=== PATIENT | male | born 1970 | race Caucasian/White ===

== ENCOUNTER 2018-10-02 23:28 | Inpatient (IN) ==
[2018-10-02] MEDS ORDERED: NS 1,000 ML IV ONE (23:50)
--- NOTE | 2018-10-02 23:56 | PROVIDER DOCUMENTATION ---
HPI-Abdominal Pain/GI Problem - General Chief Complaint: Nausea/Vomiting Stated Complaint: V/D Time Seen by Provider: 10/02/18 23:50 Source: patient Allergies/Adverse Reactions: Patient Allergies Allergy/AdvReac Type Severity Reaction Status Date / Time narcotics Allergy Intermediate panic Uncoded 07/07/16 16:12 attacks Home Medications: Home Medication List Medication Instructions Recorded Confirmed Last Taken Type Clonazepam [Klonopin] 1 mg PO TID 07/07/16 07/07/16 Unknown History Hydroxyzine [Atarax] 50 mg PO TID PRN #20 tablet 07/07/16 Unknown Rx Lisinopril 40 mg PO DAILY 07/07/16 07/07/16 Unknown History - History of Present Illness-ABD Nature of Presenting Problems: 47 YOM PRESENTS WITH C/O ABDOMINAL PAIN, N/V X 2 DAYS. HE REPORTS HE WAS AND ALCOHOLIC AND TAKES A LOT OF TYLENOL. HE REPORTS NOW HE ONLY DRINKS "ABOUT 4 BEERS A WEEK NOW". HE HAS ALSO HAD SOME DIARRHEA IN THE LAST 2 DAYS. Abdominal Pain Onset Location: reports: generalized abdomen Pain Radiation: reports: no radiation Quality of Pain: reports: none Severity in ED: reports: moderate Onset/Duration: reports: 2 days ago Timing: reports: still present Activities at Onset: reports: none Exposure to sick contacts?: No Modifying Factors: improves with: nothing Last BM: this morning Dark Stools Present?: reports: none noticed Bruising or Bleeding Gums?: No Similar Symptoms Previously?: No Recently seen or treated by another doctor?: No Review of Systems - Adult - REVIEW OF SYSTEMS - ADULT Constitutional: reports: no symptoms reported. denies: see HPI, chills, fever, fatique, night sweats, weight gain, weight loss, other Eyes: reports: no symptoms reported. denies: see HPI, discharge, dry eyes, decr eased vision, blurred vision, double vision, eye pain, redness, other Ears, Nose, Mouth & Throat: reports: no symptoms reported. denies: see HPI, ear discharge, ear pain, hearing loss, tinnitus, epistaxis, sinus problem, nose pain, loose teeth, mouth/dental pain, mouth swelling, hoarseness, throat pain, throat swelling, other Cardiovascular: reports: no symptoms reported. denies: see HPI, chest pain, edema, heart murmur, irregular heart rate, orthopnea, palpitations, poor circulation, PND, syncope, other Respiratory: reports: no symptoms reported. denies: see HPI, chronic cough, cough, dyspnea on exertion, excessive sputum production, hemoptysis, pleurisy, shortness of breath, wheezing, other Gastrointestinal: reports: see HPI, abdominal pain, diarrhea, nausea, vomiting. denies: no symptoms reported, hematemesis, constipation, difficulty swallowing, frequent heartburn, poor appetite, rectal bleeding, other Genitourinary: reports: no symptoms reported. denies: see HPI, dysuria, discharge, frequency, flank pain, frequent UTI's, hematuria, hesitency, incont inence, urinary retention, urgency, other Musculoskeletal: reports: no symptoms reported. denies: see HPI, bone pain, back pain, frequent leg cramps, joint pain, joint swelling, muscle aches, muscle weakness, neck pain, other Integumentary: reports: no symptoms reported. denies: see HPI, hives, hair loss, itching, mole changes, nail changes, rash, skin sores/ulcer, skin thickening, other Neurological: reports: no symptoms reported. denies: see HPI, ataxia, dizziness/vertigo, headache/migraines, loss of balance, numbness, paresthesia, seizure, slurred speech, syncope, tremors, other Psychiatric: reports: no symptoms reported. denies: see HPI, anxiety, anti- depressant use, alcohol/drug dependence, depression, emotional problems, insomnia, panic attacks, suicidal thoughts, other Endocrine: reports: no symptoms reported. denies: see HPI, change in skin pigment, excessive sweating, goiter, cold intolerance, heat intolerance, increased hunger, increased thirst, polyuria, other Hematologic/Lymphatic: reports: no symptoms reported. denies: see HPI, blood clots, easy bruising, low blood count, lymphedema, prolonged bleeding, swollen lymph nodes, transfusions, other Allergic/Immunologic: reports: no symptoms reported. denies: see HPI, allergic reactions, allergic rhinitis, asthma, eczema, food allergy, frequent infections, hay fever, hives, positive PPD, urticaria, other Past History - Adult - PAST MEDICAL HISTORY-ADULT Review of Records: reports: Nursing Assessment Review, Social history reviewed & non-contributory. Major Childhood Illnesses: reports: denies history Cardiovascular: reports: denies history Respiratory: reports: denies history Gastrointestinal: reports: denies history Obstetrical/Gynecological: reports: denies history Genitourinary: reports: denies history Musculoskeletal: reports: denies history Neurological: reports: denies history Psychiatric: reports: bipolar Endocrine/Immune: reports: denies history Other Conditions: reports: denies history - PRIOR SURGERIES/PROCEDURES Surgical/Procedure History: reports: tonsillectomy, other (hernia repair) - IMMUNIZATION STATUS Childhood Immunizations: See Nurse Assessment Flu Vaccine: See Nurse Assessment - FAMILY HISTORY Family History: reviewed, not pertinent Physical Exam-General - PHYSICAL EXAM-ADULT Initial Vital Signs Reviewed: Yes - CONSTITUTIONAL General Appearance: appears well, alert, no apparent distress, thin - EYES Eyes: PERRL/EOMI - HEAD, EARS, NOSE, MOUTH & THROAT HENMT: normocephalic/atraumatic, moist mucous membranes - NECK Neck: non-tender, full range of motion, supple - RESPIRATORY Respiratory: chest non-tender, lungs clear - CARDIOVASCULAR Cardiovascular: normal peripheral pulses, regular rate, rhythm - GASTROINTESTINAL (ABDOMEN) Abdominal Exam: normal bowel sounds, distended, guarding, tenderness - LYMPHATIC Lymphatic: no adenopathy - MUSCULOSKELETAL Back Exam: normal inspection Extremity: normal range of motion, non-tender, normal gait - SKIN Integumentary: normal color, normal turgor, warm/dry - NEUROLOGIC Neurologic: grossly normal - PSYCHIATRIC Psych/Mental Status: normal mood/affect, oriented x 3 Progress - PLAN OF CARE/RESULTS Progress/Plan/Lab Results: Vital Signs - 8 hr 10/02/18 23:38 Temperature 98.3 F Pulse Rate 111 H Respiratory Rate 16 Blood Pressure 116/77 O2 Sat by Pulse Oximetry 100 Orders Category Date Time Status Saline Loc NOW Care 10/02/18 23:[address] ABD/PELVIS W/IV CONT ONLY [CT] Stat Exams 10/02/18 23:51 Ordered CBC WITH ELECTRONIC DIFF [HEME] Stat Lab 10/02/18 23:45 Uncollected COMPREHENSIVE METABOLIC PANEL [CHEM] Stat Lab 10/02/18 23:45 Uncollected PROTIME WITH INR [COAG] Stat Lab 10/02/18 23:45 Uncollected PTT [COAG] Stat Lab 10/02/18 23:45 Uncollected UA NIMS W/REFLEX CULT PL [URINALYSIS] Stat Lab 10/02/18 23:45 Uncollected Ns 1000 ml IV Bolus X1 Med 10/02/18 23:50 Ordered 0.9% Sodium Chloride Inj [Ns] 1,000 ml IV 999 mls/hr Result Diagrams: 10/03/18 00:15 10/03/18 00:15 - CONSULTS/PCP/HOSPITALIST Notification #1 *Consult/PCP/Hospitalist*: Dr. Ryan, surgeon Time Discussed: 03:35 Consult Disposition: Admit - CHANGE OF SHIFT REPORT (ED Provider) 1 Report Given and Care Transferred to:: DR LOVE Time of Transfer: 01:00 Items Pending: Labs, CT/MRI Results Departure - Departure Date of Disposition Decision: 10/03/18 Time of Disposition Decision: 03:37 DIAGNOSIS: Hyponatremia Acute appendicitis Qualifiers: Acute appendicitis type: unspecified acute appendicitis type Qualified Code(s): K35.80 - Unspecified acute appendicitis Disposition: ADMITTED INPATIENT 09 Certified Medical Emergency: Emergent Condition: Stable Referrals and Follow-Ups: Shay Escalante DO [Primary Care Provider] - - Critical Care Note This patient required my direct & personal management of CC.: No Attestation - Physician/ LILO Attestation Patient care was provided by Advanced Practice Provider:: No The physician spent face to face time with patient:: Yes Advanced Practice Provider documentation review:: Supervising physician onsite and consulted in the evaluation and care of this patient. The physician did have a face to face encounter with the patient.
[2018-10-03] MEDS ORDERED: ZOFRAN IV ONE
[2018-10-03 00:49] LABS: INR 1.05; PROTIME 14.2 Seconds (11.0-16.0)
[2018-10-03 00:50] LABS: PTT 31.5 Seconds (22.3-41.8)
[2018-10-03 01:17] LABS: BASO# 0.02 X1000 (0.0-0.2); BASO% 0.3 % (0.0-0.8); EOS# 0.01 X1000 (0.0-0.7); EOS% 0.1 % (0.0-10.0); HEMATOCRIT 40.8 % (42.0-52.0); HEMOGLOBIN 15.4 g/dL (14.0-18.0); IMM GRAN# 0.02 X1000 (0.0-0.04); IMM GRAN% 0.3 % (0.0-0.5); LYMPH# 0.82 X1000 (1.2-3.4); LYMPH% 11.1 % (20.5-51.1); MCH 41.1 PG (27-31); MCHC 37.7 g/dL (33-37); MCV 108.8 FL (81-99); MONO# 0.45 X1000 (0.11-0.59); MONO% 6.1 % (1.7-9.3); MPV 8.7 FL (7.4-10.4); NEUT# 6.09 X1000 (1.4-6.5); NEUT% 82.1 % (42.2-75.2); PLT 125 X1000 (130-400); RBC 3.75 XMIL (4.7-6.1); RDW 10.9 % (11.5-14.5); WBC 7.41 X1000 (4.8-10.8)
[2018-10-03 01:41] LABS: AGAP 17; ALKALINE PHOSPHATASE 81 U/L (32-122); BUN 6 mg/dL (8-22); CALCIUM 8.8 mg/dL (8.8-10.2); CHLORIDE 84 mmol/L (98-107); COSMO 248; CREATININE 0.8 mg/dL (0.7-1.2); ESTIMATED GFR > 60; GLUCOSE 120 mg/dL (70-104); GOT 20 U/L (10-34); GPT 11 U/L (10-44); POTASSIUM 3.4 mmol/L (3.5-5.1); SODIUM 124 mmol/L (136-145); TCO2 23 mmol/L (25-35); TOTAL PROTEIN 7.7 g/dL (6.3-8.3)
[2018-10-03 02:29] LABS: BILIRUBIN URINE NEGATIVE (NEGATIVE); BLOOD URINE 2+ (NEGATIVE); CLARITY CLEAR (CLEAR); COLOR YELLOW; GLUCOSE URINE NEGATIVE (NEGATIVE); KETONE URINE 2+(Moderate) mg/dL (NEGATIVE); LEUKOCYTES URINE TRACE (NEGATIVE); NITRITE URINE NEGATIVE (NEGATIVE); PH URINE 6.5; PROTEIN URINE 1+(30 mg/dL) mg/dL (NEGATIVE); UROBILINOGEN URINE 4 mg/dL
[2018-10-03 02:32] LABS: URINE EPITHELIAL CELLS <10 /HPF (<10); URINE YEAST NONE SEEN /HPF
[2018-10-03 02:33] LABS: URINE CRYSTAL NONE SEEN /HPF; URINE SOURCE CLEAN CATCH; URINE WBC <10 /HPF (<10)
[2018-10-03 02:34] LABS: URINE BACTERIA 4+ /HFP; URINE RBC <10 /HPF (<10)
[2018-10-03] MEDS ORDERED: ZOSYN 3.375 GM in NS 50 ML IV ONE (03:35)
[2018-10-03] MEDS ORDERED: NS 1,000 ML IV ONE (03:37)
[2018-10-03] MEDS ORDERED: ZOFRAN IV PRN (03:37)
[2018-10-03] MEDS ORDERED: MORPHINE IV PRN (03:37)
[2018-10-03] MEDS ORDERED: LR 1,000 ML ONE ×2 (05:42→10:06)
[2018-10-03] MEDS ORDERED: SENSORCAINE-MPF 0.5%/EPI 1:200,000 ONE (05:42)
[2018-10-03] MEDS ORDERED: XYLOCAINE-MPF 2% ONE (05:57)
[2018-10-03] MEDS ORDERED: DIPRIVAN 1% ONE (05:57)
[2018-10-03] MEDS ORDERED: QUELICIN (DOSE) ONE (05:57)
[2018-10-03] MEDS ORDERED: ROBINUL ONE ×2 (05:57→06:59)
[2018-10-03] MEDS ORDERED: ZEMURON ONE ×4 (06:20→06:53)
[2018-10-03] MEDS ORDERED: ZOFRAN ONE (06:26)
[2018-10-03] MEDS ORDERED: DECADRON ONE (06:26)
[2018-10-03] MEDS ORDERED: TORADOL ONE (06:26)
[2018-10-03] MEDS ORDERED: MORPHINE ONE ×2 (06:36→10:14)
[2018-10-03] MEDS ORDERED: NEOSTIGMINE ONE (06:59)
--- NOTE | 2018-10-03 07:02 | HISTORY AND PHYSICAL ---
HISTORY OF PRESENT ILLNESS: Shyam Mckeon is a 47-year-old white male who presented to [facility] Emergency Department with abdominal pain localizing to his periumbilical area for the last 2 days. As part of his evaluation, he underwent a CT scan of his abdomen and pelvis which suggested acute appendicitis as did his exam and he was transferred from [facility] to [facility] for surgical evaluation and treatment. PAST MEDICAL HISTORY: Tonsillectomy and hernia repair, alcohol abuse. SOCIAL HISTORY: Smoker. FAMILY HISTORY: Noncontributory. REVIEW OF SYSTEMS: A 14-point review of systems was performed and was essentially negative except for the history of present illness. PHYSICAL EXAMINATION: VITAL SIGNS: His temperature is 98.3 degrees, pulse rate 111, blood pressure 116/77, O2 saturation 100%, respiratory rate 16. GENERAL: Mr. Mckeon is a slim middle-aged white male in no acute distress. HEENT: He has poor dentition but no oral lesions. No evidence of jaundice. LYMPHATICS: No cervical or supraclavicular lymphadenopathy. CARDIOVASCULAR: His heart has regular rate. LUNGS: Clear to auscultation and percussion bilaterally. ABDOMEN: Mostly soft. There is no evidence of hernia. There is no palpable mass. He is tender in the periumbilical area. He had no costovertebral tenderness. RECTAL: Rectal exam was not performed. EXTREMITIES: He does have palpable peripheral pulses. No peripheral edema. NEUROLOGICAL: He is alert and oriented x3 and appropriate. DATA: CT scan of his abdomen and pelvis reportedly shows acute appendicitis. His white blood cell count is normal. Electrolytes are fairly normal. IMPRESSION: Acute appendicitis. PLAN: Laparoscopic, possible open, appendectomy this morning. I have discussed the procedure in detail with the patient and his brother on the [address] [place] [address] [place]. We specifically discussed the need for surgery and its risks. We discussed risks of bleeding, infection, injury to intra-abdominal contents with trocar placement, removal of a normal appendix, conversion of laparoscopic to open appendectomy, leakage from the appendiceal stump requiring reoperation for drainage of infection. He understands the need for surgery and its risks and he wants to proceed. cc: Lizzeth Ryan MD
--- NOTE | 2018-10-03 07:19 | Diag Imaging Result Doc PS360 ---
EXAM: CT ABD/PELVIS W/IV CONT ONLY 10/02/2018 HISTORY: abd pain, TENDERNESS TECHNIQUE: This exam was performed using automated exposure control, adjustment of mA or kV according to patient size, and/or use of iterative reconstruction technique. COMMENT: There are granulomatous calcifications in the right lower lobe. There is no evidence of acute pulmonary parenchymal disease in the visualized portion of the chest. The spleen and adrenal glands are not enlarged. The pancreas is unremarkable. There are no apparent gallstones. The liver is unremarkable. There is some retained fluid in the stomach and small bowel. Some small bowel loops are distended with fluid. There is some colonic gas and fluid. There is atherosclerotic calcification in the aorta which is not distended. There is no evidence of significant adenopathy. Pelvis: There is a markedly distended appendix with a appendicolith at the base of the appendix. There is an apparent pelvic abscess with gas bubbles measuring over 4.4 cm in AP dimension. This is located posteriorly, anterior to the rectum and superior to the urinary bladder. There is no evidence of free fluid. The dilatation of the small bowel transitions around the abscess. There is degenerative disc disease at L5-S1 with vacuum phenomenon and possible herniated nucleus pulposis on the left. There is no evidence of acute bony abnormality. IMPRESSION: Ileus versus obstruction related to pelvic abscess and appendicitis. Electronically signed by Ian Oh 10/03/2018 7:17 AM
[2018-10-03] MEDS ORDERED: KETAMINE ONE (08:22)
[2018-10-03] MEDS ORDERED: VERSED ONE (08:23)
[2018-10-03] MEDS ORDERED: BRIDION ONE (09:30)
--- NOTE | 2018-10-03 09:30 | OPERATIVE NOTE ---
PROCEDURE DATE: 10/02/2018 PREOPERATIVE DIAGNOSIS: Acute appendicitis. POSTOPERATIVE DIAGNOSIS: 1. Acute appendicitis with rupture. 2. Cirrhosis. PRINCIPAL PROCEDURE: 1. Aborted laparoscopic appendectomy. 2. Open appendectomy. SURGEON: Lizzeth Ryan MD. M[employer]ICAN [employer]OD MAKER: Suleman Lee MD. ANESTHESIA: General in addition to local anesthetic. ESTIMATED BLOOD LOSS: 300 mL. DRAINS: None. INDICATIONS: Mr. Shyam Mckeon is a 47-year-old white male with a history of alcoholic abuse. He initially presented to [facility] [place] during the night with a several day history of abdominal pain localizing to his lower abdomen and right lower quadrant. A CT scan of his abdomen and pelvis was performed which suggested acute appendicitis as did his exam. He was transferred from [facility] [place] to [facility] for surgical treatment. FINDINGS: He had acute appendicitis with rupture. He had a previous periumbilical hernia repair using mesh and there was adhesions between the omentum and this mesh. These adhesions had to be taken down to visualize the area of the appendix. The cecum was also scarred to the retroperitoneum and the right abdominal wall. The appendix was laying in the pelvis and it was ruptured. A loop of small bowel was adhered to it. We had trouble mobilizing the appendix but was able to mobilize it and I used a PDS Endoloop to control the base. The appendix was removed and we were closing the abdomen after removing this appendix laparoscopically. I had placed a 10 flat Bean-Levy drain and I was unhappy with the amount of blood coming out of the drain. Initially, I made a small lower midline incision to address venous bleeding but it was difficult to determine where it was coming from, so I made a full midline incision. The spleen and liver were intact and we felt he had a general oozing from his cirrhosis and possibly bled from some of the takedown of the greater omentum. We made sure all bleeding had stopped. We had packed off all 4 quadrants of the abdomen without any evidence of ongoing bleeding. We decided against leaving a drain. We ran the entire bowel. We thoroughly irrigated out the abdomen with warm saline and then closed the midline incision. PROCEDURE: Dr. Suleman Lee came in this procedure when I made an open incision to control bleeding. He was present throughout this part of the case and helped with retraction and closure of the abdomen. Initially, the patient was brought to the operating room, placed supine, received general anesthesia, and was intubated. A Belcher catheter tube was not able to be placed by the nurses and so his abdomen was prepped and draped within the sterile field without a Belcher catheter tube. I began the procedure by making a small incision in the right upper quadrant of the abdomen to avoid his periumbilical mesh and through this incision I placed a Veress needle and pneumoperitoneum was established. I placed a 5 mm trocar through this incision into the abdomen and a 5 mm camera was used to explore the abdomen for injury. There was none. I placed 2 other trocars under direct vision with the camera. I placed a 12 mm trocar in the suprapubic area and a 5 mm trocar in the right lower quadrant of the abdomen. Using the 5 mm trocar, I took down some of the omentum adhesed to the mesh so that I could visualize the right lower quadrant better and see the appendix. I used a grasper with teeth and blunt dissection to mobilize the appendix which was laying in the pelvis. It was ruptured and I used suction to remove the purulence. I mobilized the appendix with LigaSure by taking down the appendiceal mesentery with the LigaSure all the way to the base and then I used a PDS Endoloop 0 stitch to control the base of the appendix. I removed the appendix distal to this tie with hook scissors. I cauterized this area of the appendix and then I removed the appendix from the abdomen with an Endoloop through our 12 mm port site. I placed the port back through the incision. I thoroughly irrigated out the area of operation and the irrigation was removed with suction. I placed a 10 flat Bean-Levy drain within the pelvis. It was brought out through our 5 mm port site. I closed our 11 and 12 mm port sites with [id number] 2-0 Vicryl stitches followed by 4-0 Monocryl. At this point, it was noted that there was a lot of venous blood coming out of our TAMANNA drain. I felt it was unacceptable and decided to make a lower midline incision. At this point we converted from laparoscopic to open. The incision was made with a 10 blade scalpel and it was carried down through the subcutaneous tissue, midline fascia and the peritoneal cavity was entered. We used laps to look for any evidence of the source of bleeding. I had to enlarge the incision up into the upper midline. We checked all 4 quadrants. We did cauterize some bleeding from the anterior abdominal wall and also from the omentum. We thoroughly irrigated out the abdomen with warm saline. It was noted that he was cirrhotic. We felt we had a general oozing intra-abdominally. We made sure that we were thorough at checking for any ongoing bleeding. We felt there was none. We placed the bowel back in its anatomically correct position after thoroughly irrigating the abdomen with warm saline. We placed the omentum over the small bowel and then I closed the midline incision in layers. The first layer was the peritoneum with a running 0 Vicryl stitch and then the fascia was closed with a running #1 Maxon stitch. We closed the skin with a skin clip space scheduler. No drain was left. The wound was dressed. We have asked Urology to see the patient for Belcher catheter tube placement. We also placed an NG tube near the end of the procedure. Plans are for him to go the recovery room and then be hospitalized on the floor. cc: Lizzeth Ryan MD
[2018-10-03] MEDS ORDERED: ZOSYN 3.375 GM in NS 50 ML IV SCH (10:30)
[2018-10-03 11:05] LABS: HEMATOCRIT 27.9 % (42.0-52.0); HEMOGLOBIN 9.8 g/dL (14.0-18.0)
[2018-10-03] MEDS ORDERED: SODIUM CHLORIDE 0.9% INJ PRN (11:30)
[2018-10-03] MEDS ORDERED: LR 1,000 ML IV SCH (12:00)
[2018-10-03] MEDS: ZOSYN 3.375 GM in NS 50 ML IV SCH ×3 (14:35→21:38)
--- NOTE | 2018-10-03 15:24 | OPERATIVE NOTE ---
PROCEDURE DATE: 10/03/2018 PREOPERATIVE DIAGNOSIS: Difficult Belcher catheter. POSTOPERATIVE DIAGNOSES: 1. Difficult Belcher catheter. 2. False urethral passage PROCEDURE PERFORMED: 1. Flexible Cystoscopy. 2. 14F Catheter placement. SURGEON: Bakari Clark MD FINANCIAL COMPLIANCE EXAMINER: None. COMPLICATIONS: None. BLOOD LOSS: Minimal. DRAINS: 14-Kiswahili silicone catheter. ANESTHESIA: General. SPECIMENS REMOVED: None. INDICATION FOR PROCEDURE: Mr. Mckeon is a 47-year-old who was an intraoperative consult by Dr. Ryan due to difficulty with catheter placement. Nurses have attempted multiple times to place urethral catheter, however, were unable to advance into the bladder. They said it was coiling in the urethra. Urology was consulted for placement of the catheter. The patient had presented to the hospital last night complaining of abdominal pain, was found to have appendicitis, and was taken by Dr. Ryan today for a laparoscopic converted to open appendectomy. The patient was asleep and proceeded to perform procedure. DESCRIPTION OF PROCEDURE: Patient was brought to the operating room previously by Dr. Ryan, and I was called intraoperatively to evaluate. Preoperative time out was preformed. Initially using sterile technique, attempted to place a 14-Kiswahili silicone catheter. However, I met resistance within the proximal urethra. I ultimately obtained a ZIPwire and then attempted to try to place this through the urethra into the bladder, however, I met resistance at a similar length within the urethra. The decision was made to perform cystoscopy. I obtained a flexible cystourethroscope and advanced through the urethra, showing a normal caliber urethra with no evidence of stricture or disease. However, entering into the bulbar urethra, there was a slight false passage posteriorly and widely patent urethral lumen anteriorly. I was able to easily advance the cystourethroscope into the bladder. The patient had a small prostate with no evidence of hypertrophy or obstruction. The entirety of the bladder was inspected with no diverticulum, cellules, trabeculations, or papillary lesions. Once this is completed, both ureteral orifices were visualized with efflux of clear yellow urine. The patient's bladder was left full and a wire was passed through the scope and up into the bladder and was coiled. The cystourethroscope was slowly withdrawn and a 14-Kiswahili silicone catheter was advanced over the wire and into the bladder with ease with return of light pink urine. This was inflated with 10 mL sterile water and placed to gravity drainage. The patient was then awoken and was taken to Recovery in stable condition. The patient will be admitted to Dr. Ryan postoperatively. DISPOSITION: Patient should keep indwelling catheter in for at least 3 days and can attempt a voiding trial at that time. cc: Bakari Clark MD MTDD
[2018-10-03] MEDS: OFIRMEV 1000 MG/ISOTONIC SOLN 1,000 MG/100 ML BOTTLE IV SCH ×2 (15:39→18:19)
[2018-10-03] MEDS: KLONOPIN PO SCH (18:19)
[2018-10-03] MEDS: D5 1/2 NS + KCL 20 MEQ 1,000 ML IV SCH (18:20)
[2018-10-03] MEDS: MORPHINE IV PRN (18:43)
[2018-10-03] MEDS: NICODERM PATCH TD SCH (21:38)
[2018-10-03] MEDS: PERIDEX MT SCH (21:38)
[2018-10-04] MEDS: OFIRMEV 1000 MG/ISOTONIC SOLN 1,000 MG/100 ML BOTTLE IV SCH ×4 (00:16→17:14)
[2018-10-04] MEDS: VALIUM IV PRN ×2 (04:30→20:47)
[2018-10-04] MEDS: ZOSYN 3.375 GM in NS 50 ML IV SCH ×4 (04:30→21:30)
[2018-10-04 06:09] LABS: HEMATOCRIT 26.7 % (42.0-52.0); HEMOGLOBIN 9.6 g/dL (14.0-18.0); MCV 114.1 FL (81-99); MPV 8.9 FL (7.4-10.4); RBC 2.34 XMIL (4.7-6.1); RDW 11.2 % (11.5-14.5); WBC 5.47 X1000 (4.8-10.8)
[2018-10-04 06:39] LABS: AGAP 8; BUN 6 mg/dL (8-22); CALCIUM 7.5 mg/dL (8.8-10.2); CHLORIDE 96 mmol/L (98-107); COSMO 262; CREATININE 0.6 mg/dL (0.7-1.2); ESTIMATED GFR > 60; GLUCOSE 135 mg/dL (70-104); POTASSIUM 4.5 mmol/L (3.5-5.1); SODIUM 131 mmol/L (136-145); TCO2 27 mmol/L (25-35)
[2018-10-04] MEDS: MORPHINE IV PRN ×2 (07:13→14:24)
[2018-10-04] MEDS: D5 1/2 NS + KCL 20 MEQ 1,000 ML IV SCH ×3 (07:15→18:51)
[2018-10-04] MEDS: NICODERM PATCH TD SCH (09:41)
[2018-10-04] MEDS: PAXIL PO SCH (09:41)
[2018-10-04] MEDS: PERIDEX MT SCH ×2 (09:41→20:47)
[2018-10-04] MEDS: KLONOPIN PO SCH ×3 (09:41→17:14)
--- NOTE | 2018-10-04 11:13 | PROGRESS NOTE ---
DATE: 10/04/2018 Mr. Shyam Mckeon is a 47-year-old, white male who is now postop day 1 from a laparoscopic appendectomy that was complicated by bleeding requiring us to perform an exploratory laparotomy at the same time for bleeding. He does have cirrhosis and has a history of alcohol abuse. This morning, he is awake and cooperative. I removed his NG tube. He still has his Belcher catheter tube. His heart rate is 102, blood pressure 97/67, O2 saturation 96%. He is afebrile. He is still receiving IV Zosyn because of a ruptured appendix. His white blood cell count this morning was 5, his hematocrit preop was 41 but now it is 27 and stable. PLAN: We did remove his NG tube. We will increase his activity. We will plan to remove his Belcher catheter tube tomorrow. We will continue to follow his hematocrit. cc: Lizzeth Ryan MD
[2018-10-04] MEDS: SODIUM CHLORIDE 0.9% INJ SCH (12:39)
[2018-10-04] MEDS: PEPCID IV SCH (12:39)
[2018-10-04] MEDS: PRINIVIL PO SCH (16:41)
[2018-10-04] MEDS: PHENERGAN IV PRN (20:47)
[2018-10-05] MEDS: OFIRMEV 1000 MG/ISOTONIC SOLN 1,000 MG/100 ML BOTTLE IV SCH ×4 (01:06→20:34)
[2018-10-05] MEDS: PEPCID IV SCH ×3 (01:06→20:34)
[2018-10-05 06:06] LABS: HEMATOCRIT 24.3 % (42.0-52.0); HEMOGLOBIN 8.4 g/dL (14.0-18.0); LYMPH# 1.06 X1000 (1.2-3.4); LYMPH% 21.2 % (20.5-51.1); MCH 40.6 PG (27-31); MCHC 34.6 g/dL (33-37); MCV 117.4 FL (81-99); MONO# 0.38 X1000 (0.11-0.59); MONO% 7.6 % (1.7-9.3); MPV 8.7 FL (7.4-10.4); NEUT# 3.57 X1000 (1.4-6.5); NEUT% 71.2 % (42.2-75.2); PLT 117 X1000 (130-400); RBC 2.07 XMIL (4.7-6.1); RDW 11.3 % (11.5-14.5); WBC 5.01 X1000 (4.8-10.8)
[2018-10-05] MEDS: ZOSYN 3.375 GM in NS 50 ML IV SCH ×5 (06:15→20:35)
--- NOTE | 2018-10-05 07:52 | PROGRESS NOTE ---
DATE: 10/05/2018 SUBJECTIVE: No acute events overnight. The patient states that he has some soreness in his abdominal incision, but denies significant pain. Denies any nausea or vomiting. The patient does state that he has been belching, and denies any flatus. The patient's Belcher catheter was removed this morning by General Surgery. The patient has had good urinary output through the catheter. Denies any clots or hematuria. Denies any suprapubic tenderness or urethral pain. OBJECTIVE: Vital Signs: Temperature 97.8 degrees, heart rate 103, respiratory rate 20, blood pressure 106/74, oxygen saturation 93% on room air. General: No acute distress. Resting comfortably in bed. Alert and oriented x3. Abdomen: Soft. Mild tenderness. Midline abdominal incision covered with dressing. : No suprapubic tenderness. No CVA tenderness. Normal phallus. Normal testicles with no palpable masses. Respiratory: Good respiratory effort without audible wheezing or rales. Musculoskeletal: Moving all extremities. LABORATORY DATA: White blood cell count 5.0, hemoglobin 8.4, hematocrit 24.3, platelets 117,000. ASSESSMENT AND PLAN: Mr. Mckeon is a 47-year-old who underwent laparoscopic converted to open appendectomy by Dr. Ryan on 10/03/2018 had intraoperative consult related to inability to place Belcher catheter, ultimately performed a cystoscopy and urethral catheter placement. The patient had a small false passage posteriorly, but had a widely patent anterior urethra. The patient may have an underlying urethral stricture that had led to this. The patient's catheter was removed this morning. Will see if the patient is able to urinate. If the patient is unable to void, will have to have catheter reinserted. If he is able to void, would plan for him to follow up outpatient in approximately 1 month for postvoid residual. Will continue to monitor. Please call with questions or concerns. cc: MD Lizzeth Platt MD MTDD
[2018-10-05] MEDS: PAXIL PO SCH (09:21)
[2018-10-05] MEDS: KLONOPIN PO SCH ×3 (09:21→17:35)
[2018-10-05] MEDS: NICODERM PATCH TD SCH (09:21)
[2018-10-05] MEDS: PERIDEX MT SCH ×2 (09:21→20:51)
--- NOTE | 2018-10-05 10:52 | PROGRESS NOTE ---
DATE: 10/05/2018 SUBJECTIVE: Mr. Parish Mckeon is postop day 2 from a laparoscopic appendectomy for ruptured appendix, but it was complicated by us having to do an exploratory laparotomy for bleeding. He has evidence of cirrhosis probably from alcohol abuse. His hematocrit has been stable, after surgery was 27, yesterday it was 24; I do not have labs today. He is sitting in the chair. He does look pale. His heart rate is 103 to 120. His O2 saturation 92%. He does not have shortness of breath. His abdomen is slightly distended. He has had no bowel movement. I am unsure of flatus. His midline wound is dressed. I am going to give him some clear liquids. We need to check labs tomorrow, as we are sure that he can take p.o. and we will stop some of his IV medications. cc: Lizzeth Ryan MD
[2018-10-05 11:39] LABS: HEMOGLOBIN ELECTROPHORESIS SEE COMMENTS
[2018-10-05] MEDS: MORPHINE IV PRN ×2 (11:43→20:49)
[2018-10-05] MEDS: D5 1/2 NS + KCL 20 MEQ 1,000 ML IV SCH (11:51)
[2018-10-05] MEDS: PRINIVIL PO SCH (11:51)
[2018-10-05] MEDS: SODIUM CHLORIDE 0.9% INJ SCH (12:35)
[2018-10-06] MEDS: D5 1/2 NS + KCL 20 MEQ 1,000 ML IV SCH ×2 (00:49→15:03)
[2018-10-06] MEDS: ZOSYN 3.375 GM in NS 50 ML IV SCH ×5 (01:50→21:45)
[2018-10-06] MEDS: OFIRMEV 1000 MG/ISOTONIC SOLN 1,000 MG/100 ML BOTTLE IV SCH ×3 (03:55→14:58)
[2018-10-06] MEDS: PEPCID IV SCH ×2 (03:55→14:58)
--- NOTE | 2018-10-06 05:18 | EKG Report ---
Test Performed on : 10/06/2018 05:05:24 AM Test Reason : change in rhythm Blood Pressure : / mmHG Vent. Rate : 106 BPM Atrial Rate : 106 BPM P-R Int : 134 ms QRS Dur : 084 ms QT Int : 354 ms P-R-T Axes : 071 072 041 degrees QTc Int : 470 ms Sinus tachycardia. Possible Left atrial enlargement Septal infarct , age undetermined Abnormal ECG When compared with ECG of 07-JUL-2016 16:11, Septal infarct is now present Confirmed by Oscar Fitzpatrick MD ([id number]) on 10/09/2018 9:31:01 PM
[2018-10-06 07:09] LABS: AGAP 10; BUN 5 mg/dL (8-22); CALCIUM 7.5 mg/dL (8.8-10.2); CHLORIDE 98 mmol/L (98-107); COSMO 262; CREATININE 0.5 mg/dL (0.7-1.2); ESTIMATED GFR > 60; GLUCOSE 109 mg/dL (70-104); POTASSIUM 3.5 mmol/L (3.5-5.1); SODIUM 132 mmol/L (136-145); TCO2 24 mmol/L (25-35)
[2018-10-06 07:14] LABS: EOS# 0.01 X1000 (0.0-0.7); EOS% 0.2 % (0.0-10.0); LYMPH# 1.05 X1000 (1.2-3.4); MCH 41.2 PG (27-31); MCHC 34.8 g/dL (33-37); MCV 118.6 FL (81-99); MONO# 0.22 X1000 (0.11-0.59); MONO% 4.6 % (1.7-9.3); MPV 8.7 FL (7.4-10.4); NEUT# 3.49 X1000 (1.4-6.5); NEUT% 73.2 % (42.2-75.2); PLT 130 X1000 (130-400); RBC 1.94 XMIL (4.7-6.1); RDW 11.3 % (11.5-14.5); WBC 4.77 X1000 (4.8-10.8)
--- NOTE | 2018-10-06 08:55 | PROGRESS NOTE ---
DATE: 10/06/2018 SUBJECTIVE: The patient's Belcher catheter was removed yesterday and the patient has been able to void spontaneously without any issue. The patient denies any dysuria or hematuria. He has voided multiple times with 2.2 L recorded. He states his pain is relatively well controlled. OBJECTIVE: Vital signs: Temperature 97.9 degrees, heart rate 105, blood pressure 127/87, oxygen saturation 100% on 2 L nasal cannula. General: No acute distress, resting comfortably in bed. Alert and oriented x3. Respiratory: Good respiratory effort without audible wheezing or rales. Abdomen: Soft, nontender, nondistended. Abdominal incision is covered. Genitourinary: No suprapubic tenderness. No CVA tenderness. Musculoskeletal: Moving all extremities. LABORATORY DATA: White blood cell count 4.7, hemoglobin 8, hematocrit 23.0, platelets 138,000. Sodium 132, potassium 3.5, chloride 98, bicarb 24, BUN 5, creatinine 0.5, glucose 109. ASSESSMENT AND PLAN: Mr. Mckeon is a 47-year-old who underwent laparoscopic converted to open appendectomy by Dr. Ryan on 10/03/2018. The patient was an intraoperative consult related to inability to place Belcher catheter. Ultimately performed cystoscopy with urethral catheter placement. The patient's catheter was removed yesterday and patient has been able to void without issue. He denies any dysuria or hematuria. He has had good urinary output and his renal function has remained stable. From a urologic standpoint, we will continue to allow him to void spontaneously. We will plan for him to follow outpatient with a postvoid residual in 1 month. cc: MD Lizzeth Platt MD [facility]
[2018-10-06] MEDS: MORPHINE IV PRN ×3 (09:05→23:44)
[2018-10-06] MEDS: PRINIVIL PO SCH (09:05)
[2018-10-06] MEDS: KLONOPIN PO SCH ×3 (09:05→21:45)
[2018-10-06] MEDS: PAXIL PO SCH (09:05)
[2018-10-06] MEDS: PHENERGAN IV PRN (09:05)
[2018-10-06] MEDS: PERIDEX MT SCH ×2 (09:05→21:45)
[2018-10-06] MEDS: NICODERM PATCH TD SCH (09:07)
[2018-10-06] MEDS: SODIUM CHLORIDE 0.9% INJ SCH (14:58)
[2018-10-06] MEDS ORDERED: NORCO-10 PO PRN (16:48)
--- NOTE | 2018-10-06 17:44 | PROGRESS NOTE ---
DATE: 10/06/2018 Mr. Braden Mckeon is now postoperative day 3 from open appendectomy. He had some problems with bleeding during his procedure. He has cirrhosis. He is awake. He looks pale. We know he is anemic. He has been good about sitting up. His midline incision seems to be healing well. His heart rate is 97 blood pressure 110/78, O2 saturation 100%. He is afebrile. We have continued him on IV antibiotics because of ruptured appendix. His last hematocrit was 23, and that was yesterday. We will check labs again tomorrow. We will continue IV antibiotics. We will advance his diet. cc: Lizzeth Ryan MD
[2018-10-07] MEDS: ZOSYN 3.375 GM in NS 50 ML IV SCH ×5 (04:12→23:30)
[2018-10-07] MEDS: SODIUM CHLORIDE 0.9% INJ SCH ×2 (04:12→14:16)
[2018-10-07] MEDS: PEPCID IV SCH ×3 (04:12→20:43)
[2018-10-07] MEDS: D5 1/2 NS + KCL 20 MEQ 1,000 ML IV SCH ×3 (04:13→18:10)
[2018-10-07 07:04] LABS: BASO# 0.01 X1000 (0.0-0.2); BASO% 0.2 % (0.0-0.8); EOS# 0.02 X1000 (0.0-0.7); EOS% 0.4 % (0.0-10.0); HEMATOCRIT 23.7 % (42.0-52.0); HEMOGLOBIN 8.1 g/dL (14.0-18.0); LYMPH# 1.17 X1000 (1.2-3.4); LYMPH% 21.9 % (20.5-51.1); MCH 41.1 PG (27-31); MCHC 34.2 g/dL (33-37); MCV 120.3 FL (81-99); MONO# 0.33 X1000 (0.11-0.59); MONO% 6.2 % (1.7-9.3); NEUT# 3.82 X1000 (1.4-6.5); NEUT% 71.3 % (42.2-75.2); PLT 133 X1000 (130-400); RBC 1.97 XMIL (4.7-6.1); RDW 11.7 % (11.5-14.5); WBC 5.35 X1000 (4.8-10.8)
[2018-10-07 07:22] LABS: AGAP 9; BUN 4 mg/dL (8-22); CALCIUM 7.7 mg/dL (8.8-10.2); CHLORIDE 99 mmol/L (98-107); COSMO 266; CREATININE 0.7 mg/dL (0.7-1.2); ESTIMATED GFR > 60; GLUCOSE 107 mg/dL (70-104); POTASSIUM 4.2 mmol/L (3.5-5.1); SODIUM 134 mmol/L (136-145); TCO2 26 mmol/L (25-35)
--- NOTE | 2018-10-07 09:09 | PROGRESS NOTE ---
DATE: 10/07/2018 SUBJECTIVE: Mr. Shyam Mckeon is now postop day four from an open appendectomy for ruptured appendix. His surgery was complicated by bleeding and he has cirrhosis. His heart rate is 96, blood pressure 115/83, O2 saturation 100%. He is afebrile. He is still wearing nasal cannula O2. We just started a regular diet. Yesterday, he was eating 50% of his meals. His white blood cell count is normal. His hematocrit is stable at 23 to 24 percent. Electrolytes are within normal limits. His midline incision seems to be healing well. He has been able to void on his own and move around in the room. He has not had much bowel activity. PLAN: We will let him eat a regular diet today and see how he does. As he continues to improve, we will look for discharge. He will be discharged under the care of his brother. I have talked to him about his diagnosis of cirrhosis. cc: Lizzeth Ryan MD
[2018-10-07] MEDS: PERIDEX MT SCH ×2 (09:50→20:44)
[2018-10-07] MEDS: NICODERM PATCH TD SCH (09:50)
[2018-10-07] MEDS: KLONOPIN PO SCH ×3 (09:50→18:09)
[2018-10-07] MEDS: PAXIL PO SCH (09:50)
[2018-10-07] MEDS: PRINIVIL PO SCH (09:50)
[2018-10-07] MEDS: MORPHINE IV PRN ×5 (10:41→23:00)
[2018-10-08] MEDS: D5 1/2 NS + KCL 20 MEQ 1,000 ML IV SCH ×2 (01:39→01:40)
[2018-10-08] MEDS: PEPCID IV SCH ×2 (03:08→09:04)
[2018-10-08] MEDS: MORPHINE IV PRN ×2 (03:22→06:37)
[2018-10-08] MEDS: ZOSYN 3.375 GM in NS 50 ML IV SCH ×2 (03:23→11:14)
[2018-10-08] MEDS: PERIDEX MT SCH (09:04)
[2018-10-08] MEDS: PRINIVIL PO SCH (09:04)
[2018-10-08] MEDS: NICODERM PATCH TD SCH (09:05)
[2018-10-08] MEDS: PAXIL PO SCH (09:05)
[2018-10-08] MEDS: KLONOPIN PO SCH (09:05)
[2018-10-08 11:42] VITALS: BP 113/77
--- NOTE | 2018-10-08 15:26 | GENERAL SURGERY PROGRESS NOTE ---
DATE: 10/08/2018 SUBJECTIVE: He now 6 days after his open appendectomy for a ruptured appendix and he required exploration for bleeding. Currently doing generally well. His bowels have moved. PLAN: The plan will be to discharge him today. He will call the office on Wednesday for an appointment time to have his alva removed. cc: MD Lizzeth Wiggins MD
--- NOTE | 2018-10-11 07:24 | DISCHARGE SUMMARY ---
ADMISSION DATE: 10/03/2018 DISCHARGE DATE: 10/08/2018 ADMITTING DIAGNOSIS: Acute appendicitis with rupture. DISCHARGE DIAGNOSIS: Acute appendicitis with rupture PRINCIPAL PROCEDURE: 1. Aborted laparoscopic appendectomy. 2. Open appendectomy. 3. Flexible cystoscopy for difficult Belcher catheter placement per Bakari Clark MD, on 10/03/2018. DISCHARGE DIET: Regular. DISCHARGE DISPOSITION: He will return to our outpatient offices for followup, discharge disabilities. MEDICATIONS: Full discharge medications. He is to return to his home medications. HOSPITAL COURSE: Mr. Braden Mckeon is a 47-year-old white male with a history of alcohol abuse and cirrhosis. He presented to the emergency department with abdominal pain localizing to his right lower quadrant. Part of his evaluation was a abdominal and pelvic CT scan which suggested acute appendicitis, as did his exam. He was transferred from [facility] to [facility] for surgical care. On the morning of 10/03/2018, he went to the operating room and really a laparoscopic appendectomy was performed for a ruptured appendix. A drain was left at the time of surgery but he had too much bleeding out of that drain and we decided to abort the laparoscopic approach and making an abdominal incision and identified bleeding. He had a general oozing of blood, mostly from his greater omentum. We attributed it to his cirrhosis. We took some time to explore the abdomen thoroughly, irrigated out and control any bleeding with cautery or hemostats and ties. We decided against leaving a drain once we opened. After surgery, he went to the recovery room and then to the floor with a Belcher catheter tube in place. We were able to remove his Belcher catheter tube after several days. We were able to advance his diet and we thought that is postoperative convalescence was normal. He did not have to receive any packed red blood cells but his hematocrit did drop to about 24% and remained stable and at discharge, he was able to ambulate, his midline incision was healing well, he was able to tolerate food and it was felt safe to discharge him home under the care of his brother and father with followup in our outpatient offices. He knows to contact us with any increasing abdominal distention, pain or fever. cc: Lizzeth Ryan MD
== END 2018-10-08 12:53 | disposition home or self-care (01) | DRG 339 ==
LOC: P.ED 23:28 → 4N 23:28 → OBSVTOIN 10-03 04:41
PROVIDERS: ADMIT Surgery; ATTEND Surgery